=== PATIENT | female | born 1990 | race Caucasian/White ===

== ENCOUNTER 2021-05-17 10:10 | Inpatient (IN) | payer OTHER, MEDICAID, SELFPAY ==
[2021-05-17] VITALS (17 sets, daily range): BP systolic 101–126; BP diastolic 57–102; PULSE 74–101; RESP 16–18; TEMP 35.7–36.6; O2SAT 95–98; BMI 38.7
[2021-05-17] MEDS: Lactated Ringers 1,000 ML 999 ML IV (10:30)
[2021-05-17] MEDS: Acetaminophen 500 MG Tablet 1000 MG PO ×3 (10:50→23:35)
[2021-05-17 10:53] LABS: Absolute Lymphocyte Count 1.37 X10^3/uL (0.83-4.51); Absolute Neutrophil Count 5.1 X10^3/uL (2.0-7.7); Basophil# 0.02 X10^3/uL; Basophil% 0.3 % (0-1); Eosinophil# 0.08 X10^3/uL; Eosinophils% 1.1 % (0-5); Hematocrit 34.6 % (37-47); Lymphocyte # 1.37 X10^3/ul (0.83-4.51); Lymphocyte % 19.6 % (19-41); Mean Corp Hgb Conc 31.8 g/dL (32-36); Mean Corpuscular Hgb 23.7 pg (27.0-32.0); Mean Corpuscular Volume 74.6 fL (81-99); Mean Platelet Vol. 9.9 fl (6.2-12.0); Monocyte# 0.45 X10^3/uL; Monocyte% 6.4 % (0-10); NRBC Flagged by Analyzer 0 % (0-5); Neutrophil # 5.05 X10^3/uL (2.7-7.7); Neutrophil % 72.2 % (47-70); Platelet Count 253 K/mm3 (150-450); RBC Distribution Width CV 15.4 % (11.6-14.6); Red Blood Count 4.64 M/mm3 (4.2-5.4)
[2021-05-17] MEDS: Lactated Ringers 1,000 ML 150 ML IV (11:31)
[2021-05-17] MEDS: Sodium Citrate/Citric Acid 30 ML UDC PO (11:54)
[2021-05-17] MEDS: Cefazolin 2 GM in 0.9% Normal Saline 100 ML IV (12:07)
--- NOTE | 2021-05-17 13:22 | PCM.HP.OB ---
HPI - General General Date of Admission: 05/17/21 HPI Narrative SADIA WARNER, is a 30 F who presents for scheduled section. No complaints today. Maternal Data Information RISA Calculator Estimated Delivery Date Method Current WG Current Estimate 05/23/21 Ultrasound #1 39w 1d Other Estimates 05/13/21 LMP (Certain) 40w 4d PFSH PFSH Medical History (Updated 05/17/21 @ 13:[address] Corinne Gloria, DO) Gestational diabetes hemorrhage Stillborn, normal Home Medications [id number] [] 1 tab PO 05/17/21 [History Last Taken 05/16/21 21:00] Allergy/AdvReac Type Severity Reaction Status Date / Time cashew nut Allergy Hives Verified 05/17/21 10:33 Surgical History (Updated 05/17/21 @ 11:36 by Alecia Barriga) History of surgery Social History Smoking Status: Never smoker History Elective abortions Hx Para 2 Spontaneous abortions Hx # Term Pregnancies Ectopic pregnancies Hx # Pregnancies Multiple births # of living children NST FHR Rate Baby A NST Reactive:: Yes FHR Category:: Category I ROS ROS Narrative No pain, vb, lof. +FM. Vital Signs Vital Signs Vital Signs: 05/17/21 10:44 05/17/21 11:38 Temperature 97.9 F Temperature Source Temporal Pulse Rate 98 101 H Respiratory Rate 18 Blood Pressure 113/77 113/77 Blood Pressure Mean 89 BP Systolic 113 BP Diastolic 77 Blood Pressure Source Monitor Blood Pressure Position Semi-Fowlers Blood Pressure Location Right Arm Pulse Ox 95 Oxygen Delivery Method Room Air Weight Weight: 226 lb Body Mass Index (BMI) 38.7 Physical Exam Const alert and no apparent distress General Appearance: cooperative HEENT normocephalic Resp normal respiratory effort Cardio regular rate GI soft to palpation and non-tender Extremity no clubbing, cyanosis or edema Labs Labs Labs: Blood Type B NEGATIVE Antibody Screen NEGATIVE Hct 34.6 % (37-47) L Hgb 11.0 g/dL (12.0-15.0) L Assessment & Plan (1) 39 weeks gestation of : PLAN: Patient presents for scheduled section. She has a history of a shoulder dystocia with a shoulder dislocation and the baby weighed 8 pounds 10 ounces at that time. Based on palpation in the office as well as a third trimester growth ultrasound, the weight of this fetus was expected to be around the same as her first which was complicated by shoulder dystocia. Discussed risks, benefits, alternatives to a scheduled primary section and a vaginal delivery. Discussed option for an elective induction of labor at 39 weeks versus awaiting spontaneous labor. I had an in-depth discussion with the patient and her partner and gave them several attempts to discuss amongst themselves their desired mode of delivery. The patient understood risk of recurrence with a shoulder dystocia. She understood limitations of a third trimester growth ultrasound. She understood risks with a section and recovery. She also understood risks and complications with a shoulder dystocia. The patient desired to proceed with a primary section. Preop antibiotics given. Consent signed. Routine preoperative care. (2) History of shoulder dystocia: (3) History of IUFD: (4) Late care: (5) Rh negative status during :
[2021-05-17] MEDS: Oxytocin 30 units/NS 500 ml 30 UNITS/500 ML IV.SOLN 167 UNITS IV (13:25)
--- NOTE | 2021-05-17 13:28 | PCM.OPRPT ---
Problems Associated Problem List Diagnoses (1) 39 weeks gestation of : (2) History of shoulder dystocia: (3) History of IUFD: (4) Late care: (5) Rh negative status during : Report of Operation Date of Procedure: 05/17/21 Pre-Operative Diagnosis: 39 week gestation, single IUP, history of shoulder dystocia, suspected macrosomia, elective section Post-Operative Diagnosis: As above Surgery/Procedure Performed:: Primary low transverse section via Pfannenstiel incision Description of Surgical Findings:: Clear fluid. Normal-appearing placenta. Viable male infant who weighed 8 pounds 15 ounces. Normal-appearing uterus, bilateral tubes, bilateral ovaries. Surgeon: [employer] fast food delivery driver: Daisy Type of Anesthesia: Spinal Special Medications: None Specimen's removed: Placenta Drains: Mayo Estimated Blood Loss (mL): 1000 Fluids Replaced: See anesthesia record Description of Procedure: The patient was taken to the operating room where spinal anesthesia was adequate. She was prepped and draped in the dorsal position with a leftward tilt. A Pfannenstiel skin incision was made with a scalpel and this was carried down to the underlying layer of fascia. The fascia was incised in the midline. The fascia was extended laterally using Blair scissors. The fascia was dissected off of the rectus muscles with combination of sharp and blunt dissection with good visualization of the bladder. The incision was stretched bluntly. A low transverse incision was made on the uterus with a scalpel. Membranes were ruptured for clear fluid. The head of the infant was flexed and brought to the hysterotomy. The infant was delivered without any force or delay. A viable male infant was delivered atraumatically and easily through the hysterotomy. The cord was clamped and cut immediately and the vigorous infant was handed off to the nursery staff. The placenta was removed with manual extraction. The uterus was exteriorized. The uterus was cleared of all clot and debris. The uterine incision was closed with Vicryl in a running locked fashion. A second implicating layer was performed using Vicryl. The incision was noted to be hemostatic. The adnexa were noted to be normal-appearing. Uterus is placed back into the abdomen. Arrista was placed over the hysterotomy. The peritoneum was closed with Vicryl in a running fashion. The fascia was closed with stratafix in a running fashion. The subcutaneous space was irrigated and made hemostatic with the Bovie cautery. Subcutaneous space was reapproximated with Vicryl. Skin was closed in a subcuticular fashion using Monocryl. Steri-Strips and dressing were placed. Instrument, needle, sponge counts were correct and the patient was taken to the recovery room in stable condition. Grafts/Implants Used: None Complications None Admit VTE Documentation VTE Present on Admission: No VTE Mechan Device Prophylaxis: SCD's
[2021-05-17] MEDS: Ketorolac 30 MG/ML Syringe IV ×2 (14:15→20:02)
[2021-05-17] MEDS: Lactated Ringers 1,000 ML 100 ML IV (16:31)
[2021-05-18] MEDS: Enoxaparin 40 MG/0.4 ML Syringe SC (01:22)
[2021-05-18] MEDS: 0.9% Saline Lock 10 ML Syringe IV (02:26)
[2021-05-18] MEDS: Ketorolac 30 MG/ML Syringe IV ×2 (02:26→08:49)
[2021-05-18 04:00] VITALS: BP 104/57; PULSE 91; RESP 16; TEMP 36.5; O2SAT 95
[2021-05-18] MEDS: Acetaminophen 500 MG Tablet 1000 MG PO ×2 (05:24→11:26)
[2021-05-18 06:42] LABS: Hematocrit 31.5 % (37-47); Hemoglobin 9.6 g/dL (12.0-15.0); Mean Corp Hgb Conc 30.5 g/dL (32-36); Mean Corpuscular Hgb 23.1 pg (27.0-32.0); Mean Corpuscular Volume 75.9 fL (81-99); Mean Platelet Vol. 9.1 fl (6.2-12.0); Platelet Count 231 K/mm3 (150-450); RBC Distribution Width CV 15.6 % (11.6-14.6); RBC Distribution Width SD 42.1 fl (35.1-43.9); Red Blood Count 4.15 M/mm3 (4.2-5.4); White Blood Count 10.3 K/mm3 (4.4-11.0)
--- NOTE | 2021-05-18 08:54 | NURSING ---
this nurse agrees with assessment and vital signs of patient per Lhkpa, student nurse.
[2021-05-18 09:03] VITALS: BP 105/64; PULSE 90; RESP 16; TEMP 35.9; O2SAT 96
--- NOTE | 2021-05-18 10:01 | PCM.PN.OB ---
Subjective Subjective Patient is doing well this morning. Ambulating voiding without difficulty. Tolerating regular diet without nausea or vomiting. She denies chest pain, lightheadedness, dizziness, shortness of breath, leg pain. Lochia normal. She is breast-feeding without any complaints. She desires discharge to home today. Objective Data Objective Data Vital Signs: Vital Signs Temp Pulse Resp BP Pulse Ox 96.6 F L 90 16 105/64 96 05/18/21 09:03 05/18/21 09:03 05/18/21 09:03 05/18/21 09:03 05/18/21 09:03 Oxygen Delivery Method Room Air Weight: 226 lb Body Mass Index (BMI) 38.7 Intake & Output: Intake and Output for Last 24 Hours 05/16/21 05/17/21 05/18/21 23:59 23:59 23:59 Intake Total 1930 / 2678.33 748.33 / 748.33 Output Total 1585 / 1585 1500 / 1500 Balance 345 / 1093.33 -751.67 / -751.67 Lab / Micro Data Result Diagrams: 05/18/21 06:25 Labs: Laboratory Results - last 24 hr 05/17/21 10:37: WBC 7.0, RBC 4.64, Hgb 11.0 L, Hct 34.6 L, MCV 74.6 L, MCH 23.7 L, MCHC 31.8 L, RDW Std Deviation 41.0, RDW Coeff of Maeve 15.4 H, Plt Count 253, MPV 9.9, Immature Gran % (Auto) 0.400, Neut % (Auto) 72.2 H, Lymph % (Auto) 19.6, Granite % (Auto) 6.4, Eos % (Auto) 1.1, Baso % (Auto) 0.3, Absolute Neuts (auto) 5.1, Absolute Lymphs (auto) 1.37, Nucleated RBC % 0 05/17/21 10:37: Blood Type B NEGATIVE, Antibody Screen NEGATIVE 05/17/21 14:25: Screen NEGATIVE, Baby's Blood Type B POSITIVE, Baby's CHECO NEGATIVE 05/18/21 06:25: WBC 10.3, RBC 4.15 L, Hgb 9.6 L, Hct 31.5 L, MCV 75.9 L, MCH 23.1 L, MCHC 30.5 L, RDW Std Deviation 42.1, RDW Coeff of Maeve 15.6 H, Plt Count 231, MPV 9.1 Micro: Microbiology 05/17/21 10:25 Nasal Secretion SARS-CoV-2 Antigen (Rapid) - Final Physical Exam Const alert and no apparent distress General Appearance: comfortable HEENT normocephalic Resp normal respiratory effort Extremity Extremity Narrative: Trace edema bilaterally General Extremity: Negative for calf tenderness Assessment & Plan (1) Rh negative status during : (2) Late care: (3) History of IUFD: (4) History of shoulder dystocia: (5) 39 weeks gestation of : (6) S/P section: PLAN: She is doing well postop. Vital signs are stable. Postop anemia noted and discussed iron supplementation going home with patient. She is meeting all milestones for discharge and discharge instructions were reviewed. DC home today with follow-up next week for incision check.
--- NOTE | 2021-05-18 10:09 | PCM.DC ---
Discharge Instructions Diet Discharge Diet: No restrictions Activity Discharge Activity: May Not Drive (until strong enough to slam a brake or turn a steering wheel sharply) May resume sexual activity in: 6-8 weeks Weight Bearing Status: Weight bearing as tolerated Lifting Restrictions: Nothing heavier than baby Dressing / Incision Call your doctor if your incision/area has: Sudden Increased Bleeding, Increased Pain/ Swelling, Increased Redness, Foul Smelling Discharge and Swelling at the incision site Call your doctor if you observe: Fever of 101 or Higher, Coldness, Increased Pain, Numbness or Tingling, Change in Color, Inability to urinate, Inability to have a bowel movement, Using more than 1 pad per hour, Shortness of breath, Dizziness, Fainting spells, Swelling in the ankles, Chest pain, Increased palpitations (irregular heartbeat), Calf discomfort and Uncontrolled pain Suture Line Care: Avoid Pulling/Pushing and Avoid Pinching/Bending Remove Dressing in: leave in place till F/U Cleanse incision/area with: Soap & Water Follow Up Care Please Follow Up With: [facility] When: 1 week and 6 weeks Test Results: Test results from this visit will be discussed in further detail at your follow-up appointment, if applicable. Discharge Plan Admission Admit Date/Time: 05/17/21 10:10 Primary Reason for Your Visit: section Attending Provider: Corinne Gloria Instructions Patient Instructions: After a , C Section Dc Discharge Orders/Prescriptions Prescriptions: New oxycodone-acetaminophen [Percocet] 5-325 mg tablet 1 tab PO Q6H PRN (Reason: pain) 7 Days Qty: 10 RF: 0 docusate sodium [Colace] 100 mg capsule 100 mg PO BID Qty: 30 RF: 0 ibuprofen 600 mg tablet 600 mg PO Q6H PRN (Reason: pain) Qty: 30 RF: 0 ferrous sulfate 325 mg (65 mg iron) tablet 325 mg PO DAILY Qty: 30 RF: 0 Continued [id number] 1 mg Tablet 1 tab PO RF: 0 Disposition Disposition (needs filled in before D/C Order can be placed): Home, Self Care
--- NOTE | 2021-05-18 13:55 | NURSING ---
This chief nursing officer reviewed the documentation completed by the student, Rkeha Lyon.
[2021-05-18 14:17] VITALS: BP 103/72; PULSE 89; RESP 16; TEMP 36.5; O2SAT 98
[2021-05-18] MEDS: Ibuprofen 600 MG Tablet PO (14:40)
== END 2021-05-18 15:05 | disposition home or self-care (01) | DRG 788 ==
PROVIDERS: Admitting Provider Obstetrics & Gynecology; Visit Provider Obstetrics & Gynecology
PROC: 10D00Z1 Extraction of Products of Conception, Low, Open Approach (ICD-10-PCS; CPT 59514; principal; 2021-05-17 11:45)
DX: O99.892 Other specified diseases and conditions complicating childbirth (principal); Z37.0 Single live birth; Z67.91 Unspecified blood type, Rh negative; Z87.59 Personal history of other complications of pregnancy, childbirth and the puerperium; Z3A.39 39 weeks gestation of pregnancy
CPT/HCPCS: 59050; 85025; 85027; 85461; 86850; 86900; 86901; 87426; 90384; 99218; J7120; A4216; G0378; J2790

== ENCOUNTER 2022-01-16 14:56 | Emergency (ER) | payer OTHER, MEDICAID, SELFPAY ==
[2022-01-16 14:57] VITALS: BP 129/93; PULSE 95; RESP 16; TEMP 36.3; O2SAT 97; BMI 34.7
--- NOTE | 2022-01-16 15:38 | US_ITS ---
STUDY: ULTRASOUND TRANSVAGINAL CLINICAL: Female, 31 years old. heavy vaginal bleeding TECHNIQUE: Transvaginal COMPARISON: None. FINDINGS: Normal uterine size measuring 9.8 x 4.5 x 5.5 cm in maximal craniocaudal dimension. There are no myometrial masses. Normal endometrial thickness measuring 12 mm. There are no endometrial masses, and there is no fluid in the endometrial cavity. Normal uterine cervix. Normal right ovary, measuring 4.1 x 2.2 x 2.3 cm. There are multiple follicles without a dominant cyst. Normal left ovary, measuring 2.5 x 2.3 x 2 point cm. There are multiple follicles without a dominant cyst. There is no free fluid in the pelvis. Polycystic ovary disease: No. US/Transvaginal Non- IMPRESSION: Normal transvaginal pelvic ultrasound. Electronically Signed: Bradley Coffman MD at 17:11 EDT ,
--- NOTE | 2022-01-16 15:39 | ED.VIS.FEGU ---
HPI HPI - Female History of Present Illness Chief Complaint: Vag Bleeding Informant: patient Bleeding Issue: Positive for Vaginal bleeding and Passing clots Onset: Yesterday Timing: Continuous Current Severity: Heavy Narrative Narrative: Patient presents secondary to heavy vaginal bleeding. Her last normal menstrual cycle was 2 weeks ago. She states other than being slightly vamper than normal it was time for her normal period. Yesterday she started bleeding again. She normally wears a vaginal cup and states she noted that she had to dump it more frequently than normal. Overnight she bled through everything. She went to the emergency room in [place] earlier this morning. test was negative and hemoglobin was normal. 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 She had appointment at 1 PM this afternoon. During her 30-minute drive from her home to the office she blood through her clothing. She was not seen in the office but was instead advised to present to the emergency room. She states she was having abdominal cramping yesterday but not having any pain at this time. [facility] Medical History Gestational diabetes History of IUFD History of shoulder dystocia hemorrhage Rh negative status during Stillborn, normal Home Medications [id number] 1 mg tablet 1 tab PO 05/17/21 [History Last Taken 05/16/21 21:00] docusate sodium 100 mg capsule (Colace) 100 mg PO BID #30 caps 05/18/21 [Rx Last Taken Unknown] ferrous sulfate 325 mg (65 mg iron) tablet 325 mg PO DAILY #30 tabs 05/18/21 [Rx Last Taken Unknown] ibuprofen 600 mg tablet 600 mg PO Q6H PRN pain #30 tabs 05/18/21 [Rx Last Taken Unknown] oxycodone-acetaminophen 5 mg-325 mg tablet (Percocet) 1 tab PO Q6H PRN pain 7 days #10 tabs 05/18/21 [Rx Last Taken Unknown] norethindrone acetate 5 mg tablet (Aygestin) 5 mg PO TID #30 tabs 01/16/22 [Rx Last Taken Unknown] Allergy/AdvReac Type Severity Reaction Status Date / Time cashew nut Allergy Hives Verified 05/29/21 08:20 Surgical History History of surgery S/P section Social History Smoking Status: Never smoker ROS ROS ED Constitutional Constitutional ED: Denies chills or fever(s) Eyes Eyes: Denies change in vision or discharge from eye(s) ENT ENT ED: Denies discharge from eye(s), rhinorrhea or sore throat Cardiovascular Cardiovascular: Denies chest pain or palpitations Respiratory/Chest Respiratory/Chest: Denies cough or dyspnea Gastrointestinal Gastrointestinal: Denies abdominal pain, diarrhea, nausea or vomiting Genitourinary Genitourinary ED: Reports other Details: Heavy vaginal bleeding ; Denies difficulty urinating or dysuria Musculoskeletal Musculoskeletal: Denies back pain or extremity pain Integumentary Denies Abrasions or rash Neurologic Neurologic: Denies headache(s) or weakness Allergic/Immunologic Allergic/Immunologic ED: Denies lip swelling or urticaria EXAM Physical Exam Const Vital Signs: 01/16/22 14:57 Temperature 97.4 F L Temperature Source Temporal Pulse Rate 95 Respiratory Rate 16 Blood Pressure 129/93 H Blood Pressure Mean 105 Pulse Ox 97 Oxygen Delivery Method Room Air Positive well nourished and well developed General Appearance ED: well developed HEENT Reports moist mucous membranes Eyes PERRL and EOMs intact bilaterally Chest Wall inspection of chest normal and palpation of chest normal Resp normal respiratory effort and clear to auscultation bilaterally Cardio regular rate and regular rhythm GI soft to palpation and non-tender Extremity normal to inspection Neuro oriented x3 and no sensory deficits noted Motor Exam: strength 5/5 throughout Psych mental status grossly normal Skin no rashes or lesions noted MDM MDM MDM Narrative Medical decision making narrative: Patient given IV fluids. CBC obtained. I did review records from [place] and patient's quant was less than 2 this morning. Pelvic ultrasound is ordered. Lab Data Attestation: I reviewed the patient's lab results. Labs: Laboratory Results - last 24 hr 01/16/22 15:50 WBC 7.8 RBC 4.97 Hgb 14.0 Hct 41.4 MCV 83.3 MCH 28.2 MCHC 33.8 RDW Std Deviation 40.1 RDW Coeff of Maeve 13.2 Plt Count 363 MPV 8.8 Immature Gran % (Auto) 0.300 Neut % (Auto) 67.8 Lymph % (Auto) 23.9 [place] % (Auto) 5.3 Eos % (Auto) 2.3 Baso % (Auto) 0.4 Absolute Neuts (auto) 5.3 Absolute Lymphs (auto) 1.86 Nucleated RBC % 0 Radiography Diagnostic Testing: Clinical Impression(s) from Imaging Studies Transvaginal US 01/16/22 15:38 IMPRESSION: Normal transvaginal pelvic ultrasound. Electronically Signed: Bradley Coffman MD at 17:11 EDT , Treatment and Re-Evaluation Narrative: Patient's hemoglobin this morning was 14.4, currently is 14.0. Pelvic ultrasound reveals no acute abnormalities. Endometrial stripe is 12 mm. I spoke with Celina Correa, nurse pressure sealer and tester on-call for [employer]. She states that we can give the patient prescription for Aygestin if she wishes. I spoke with the patient. She feels that the bleeding is lightening up currently. We will write her a prescription to take with her. If her bleeding increases again she will fill this tomorrow. Return instructions are provided. Discharge Plan Triage Chief Complaint: Vag Bleeding ED Provider: Valarie Rivas Dx/Rx/DC Orders Clinical Impression: Menorrhagia Instructions: ED Heavy Menstrual Bleeding Prescriptions: New norethindrone acetate [Aygestin] 5 mg tablet 5 mg PO TID Qty: 30 0RF Rx Instructions: One tab three times daily until your bleeding subsides. Then take one tab twice daily for three days, followed by one tab daily for three days. No Action [id number] 1 mg Tablet 1 tab PO oxycodone-acetaminophen [Percocet] 5-325 mg tablet 1 tab PO Q6H PRN (Reason: pain) 7 Days Qty: 10 0RF docusate sodium [Colace] 100 mg capsule 100 mg PO BID Qty: 30 0RF ibuprofen 600 mg tablet 600 mg PO Q6H PRN (Reason: pain) Qty: 30 0RF ferrous sulfate 325 mg (65 mg iron) tablet 325 mg PO DAILY Qty: 30 0RF Primary Care Provider: Care Physician,No Primary Referrals: Pham Borden MD [Med Staff - Active Staff] - 3-5 Days if not improving NOT,DEFINED [Non-Staff] - Disposition Disposition: Home, Self Care
[2022-01-16] MEDS: 0.9% Normal Saline 1,000 ML 1000 ML IV (15:56)
[2022-01-16 16:00] LABS: Absolute Lymphocyte Count 1.86 X10^3/uL (0.83-4.51); Absolute Neutrophil Count 5.3 X10^3/uL (2.0-7.7); Basophil# 0.03 X10^3/uL; Basophil% 0.4 % (0-1); Eosinophil# 0.18 X10^3/uL; Eosinophils% 2.3 % (0-5); Hematocrit 41.4 % (37-47); Lymphocyte # 1.86 X10^3/ul (0.83-4.51); Lymphocyte % 23.9 % (19-41); Mean Corp Hgb Conc 33.8 g/dL (32-36); Mean Corpuscular Hgb 28.2 pg (27.0-32.0); Mean Corpuscular Volume 83.3 fL (81-99); Mean Platelet Vol. 8.8 fl (6.2-12.0); Monocyte# 0.41 X10^3/uL; Monocyte% 5.3 % (0-10); NRBC Flagged by Analyzer 0 % (0-5); Neutrophil # 5.29 X10^3/uL (2.7-7.7); Neutrophil % 67.8 % (47-70); Platelet Count 363 K/mm3 (150-450); RBC Distribution Width CV 13.2 % (11.6-14.6); RBC Distribution Width SD 40.1 fl (35.1-43.9); Red Blood Count 4.97 M/mm3 (4.2-5.4); White Blood Count 7.8 K/mm3 (4.4-11.0)
== END 2022-01-16 17:43 | disposition home or self-care (01) ==
PROVIDERS: Emergency Provider Emergency Medicine; Visit Provider Emergency Medicine
DX: N92.0 Excessive and frequent menstruation with regular cycle (principal)
CPT/HCPCS: 76830; 85025; 96360; 96361; 99283; J7030; A4216

== ENCOUNTER → 2023-10-21 | Outpatient (CLI) | payer OTHER, BC, SELFPAY ==
--- NOTE | 2023-10-21 15:03 | VDLE_ITS ---
Reason For Study: Bilateral leg pain RIGHT LEFT GSV is normal. GSV is normal. CFV is compressible, spontaneous, phasic, CFV is compressible, spontaneous, phasic, competent and demonstrates normal competent, and demonstrates normal augmentation. augmentation. FV is compressible, spontaneous, phasic, FV is compressible, spontaneous, phasic, competent and demonstrates normal competent and demonstrates normal augmentation. augmentation. POP V is compressible, spontaneous, phasic, POP V is compressible, spontaneous, phasic, competent and demonstrates normal competent and demonstrates normal augmentation. augmentation. T/P Trunk is compressible. T/P Trunk is compressible. PTV is compressible. PTV is compressible. RT PerV is compressible. LT PerV is compressible. Procedure This is a venous duplex using B-mode, color flow and spectral Doppler. Exam performed in department. A preliminary report was called and/or faxed to Dr. Gloria. VL/Venous Duplex US - Abhishek Extrem Interpretation Summary No evidence for acute deep venous thrombosis bilateral lower extremities with p atent and compressible bilateral great saphenous veins. Ordering Physician: Corinne Gloria Performed By: Madison Belcher RVT and Student
== END | disposition home or self-care (01) ==
PROVIDERS: Referring Provider Obstetrics & Gynecology; Visit Provider Obstetrics & Gynecology
DX: O99.891 Other specified diseases and conditions complicating pregnancy (principal); M79.661 Pain in right lower leg; R09.89 Other specified symptoms and signs involving the circulatory and respiratory systems; Z3A.38 38 weeks gestation of pregnancy; O09.93 Supervision of high risk pregnancy, unspecified, third trimester
CPT/HCPCS: 93970

== ENCOUNTER 2023-10-25 05:40 | Inpatient (IN) | payer OTHER, BC, SELFPAY ==
[2023-10-25] VITALS (16 sets, daily range): BP systolic 101–120; BP diastolic 63–84; PULSE 66–92; RESP 16; TEMP 35.9–37.1; O2SAT 96–100; BMI 36.1
[2023-10-25] MEDS: Lactated Ringers 1,000 ML 999 ML IV (05:55)
[2023-10-25 06:16] LABS: Absolute Lymphocyte Count 1.83 X10^3/uL (0.83-4.51); Absolute Neutrophil Count 3.7 X10^3/uL (2.0-7.7); Basophil# 0.01 X10^3/uL; Basophil% 0.2 % (0-1); Eosinophil# 0.16 X10^3/uL; Eosinophils% 2.6 % (0-5); Hematocrit 35.9 % (37-47); Hemoglobin 11.8 g/dL (12.0-15.0); Lymphocyte # 1.83 X10^3/ul (0.83-4.51); Lymphocyte % 30.1 % (19-41); Mean Corp Hgb Conc 32.9 g/dL (32-36); Mean Corpuscular Hgb 25.2 pg (27.0-32.0); Mean Corpuscular Volume 76.7 fL (81-99); Mean Platelet Vol. 9.5 fl (6.2-12.0); Monocyte# 0.32 X10^3/uL; Monocyte% 5.3 % (0-10); NRBC Flagged by Analyzer 0 % (0-5); Neutrophil # 3.73 X10^3/uL (2.7-7.7); Neutrophil % 61.5 % (47-70); Platelet Count 294 K/mm3 (150-450); RBC Distribution Width CV 14.6 % (11.6-14.6); RBC Distribution Width SD 39.9 fl (35.1-43.9); Red Blood Count 4.68 M/mm3 (4.2-5.4); White Blood Count 6.1 K/mm3 (4.4-11.0)
[2023-10-25] MEDS: Sodium Citrate/Citric Acid 30 ML UDC PO (06:16)
[2023-10-25] MEDS: Acetaminophen 500 MG Tablet 1000 MG PO ×3 (06:16→18:25)
[2023-10-25] MEDS: Lactated Ringers 1,000 ML 150 ML IV (06:57)
--- NOTE | 2023-10-25 07:10 | PCM.HP.BLA ---
History and Physical Date of Admission: 10/25/23 DATE OF SERVICE: October 14, 2023 PROBLEM: accelerated growth, history shoulder dystocia DIAGNOSIS: as above PAST SURGICAL HISTORY: PAST SURGICAL HISTORY PAST SURGICAL HISTORY Procedure Laterality Date ? DELIVERY ONLY 05/17/2020 LTCS ? D&C, DIAG AND/OR THERAPEUTIC D&E ? TONSILLECTOMY HX PAST MEDICAL HISTORY: PAST MEDICAL HISTORY PAST MEDICAL HISTORY Diagnosis Date ? Diabetes, gestational ? Gestational diabetes ? 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 History of cold urticaria Pt states she has not had problems with this in a few years ? History of gestational diabetes in prior , currently 11/24/2020 ? Late care affecting , antepartum 11/24/2020 11/24/2020atient is 14w2d by dates. Did not have any care prior to her ultrasound appointment on November 21. She states she was seen earlier in because she has a history of recurrent loss and wanted to wait till she was past the 12-week leonidas. TKRN ? Positive GBS test 05/04/2021 SUBJECTIVE: pt doing well and offers no complaints SOCIAL HISTORY: SOCIAL HISTORYExpand by Default Social History Tobacco Use ? Smoking status: Never ? Smokeless tobacco: Never Vaping Use ? Vaping Use: Never used Substance Use Topics ? Alcohol use: Not Currently ? Drug use: Never ALLERGIES ALLERGIES Allergen Reactions ? Cashew Nut Hives Current Outpatient Medications on File Prior to Visit Medication Sig ? BABY ASPIRIN ORAL Take 81 mg by mouth once daily. ? Nwsjzoua-Sx-Mle-Fe-FA ( VITAMIN) tab Take 1 tablet by mouth. No current facility-administered medications on file prior to visit. OBJECTIVE: VITALS: BP 120/74 Wt 94.7 kg (208 lb 12.8 oz) LMP 01/07/2023 BMI 35.84 kg/m? HEENT: Normocephalic, atraumatic, Mucus membranes moist without lesions. SKIN: No lesions. CHEST: No increased respiratory effort. HEART: Regular rate. BACK: Nontender. ABDOMEN: Soft, non-tender, non-distended, no masses, no hepatosplenomegaly, gravid. LOWER EXTREMITIES: There were no skin changes. ASSESSMENT: pre op visit for repeat section per patient request given accelerated growth and history of shoulder dystocia PLAN: 1) Discussed r/b/a repeat section. The patient understands limitations with growth ultrasounds. She desires to proceed with a repeat section. The rationale for the proposed surgery was discussed in addition to risks, benefits, and alternatives. General pre- and post-operative care was reviewed. Questions were answered. After discussion, the patient indicated a desire to proceed with the planned surgery. Corinne Gloria, DO Assessment & Plan Assessment/Plan (1) 39 weeks gestation of : (2) History of section: (3) Accelerated growth of fetus:
[2023-10-25] MEDS: Cefazolin 2 GM in 0.9% Normal Saline (100mL Bag) 100 ML IV (07:15)
[2023-10-25 08:03] LABS: Syphilis Antibodies Non-reactive
--- NOTE | 2023-10-25 08:28 | PCM.OPRPT ---
Problems Associated Problem List Diagnoses (1) Accelerated growth of fetus: (2) History of section: (3) 39 weeks gestation of : Report of Operation Date of Procedure: 10/25/23 Pre-Operative Diagnosis: 39 week gestation, history section, accelerated growth Post-Operative Diagnosis: As above Surgery/Procedure Performed:: RLTCS via pfannenstiel incision Description of Surgical Findings:: VMI in cephalic presentation with Apgars 8, 9. Large amount of clear fluid. Loose nuchal cord x 1. Minimal adhesive disease of bladder to anterior uterus. Normal appearing uterus and bilateral adnexa. Normal appearing placenta. Surgeon: Corinne Gloria manager pacu: Zeinab CATHERINE Type of Anesthesia: Spinal Special Medications: None Specimen's removed: Placenta Drains: Mayo Estimated Blood Loss (mL): 900 Fluids Replaced: 1000 mL Description of Procedure: The patient was taken to the operating room where spinal anesthesia was found to be adequate. She was prepped and draped in the dorsal supine position with a leftward tilt. A Pfannenstiel skin incision was made with a scalpel and carried down to the underlying layer of fascia. The fascia was incised in the midline. The fascial incision was extended laterally using Blair scissors. The fascia was dissected off the rectus muscles in a cephalad direction with adhesive disease of the fascia to the rectus muscles noted. The peritoneum was adhered to the rectus muscles in the midline. The rectus muscles were midline bluntly. The peritoneum was entered with a combination of sharp and blunt dissection with good visualization of the bladder. The peritoneal incision was extended with lateral traction. A bladder blade was inserted. Minimal adhesive disease of the bladder was noted to the uterus. A bladder flap was created using Metzenbaum scissors. A low transverse incision was made on the uterus with a scalpel. The uterine incision was extended with cephalad and caudad traction. Membranes were ruptured for clear fluid with an Allis clamp. A vigorous viable male was delivered in cephalic presentation without any traction, force, or delay. A loose nuchal cord x 1 was reduced during delivery. Head was kept in flexed position during delivery. The cord was clamped and cut after a slight delay and the infant was handed off to the waiting nursery staff. The placenta was removed with manual extraction. The uterus was exteriorized. The uterus was cleared of all clot and debris. The uterine incision was closed with 1-0 Vicryl in a running locked fashion. Several additional [id number] sutures were placed at the left side of the uterine incision for hemostasis. Hemostasis was noted. The uterus was placed back into the abdomen. Hemostasis was again noted. The peritoneum was unable to be reapproximated. The preperitoneal fat was made hemostatic using Bovie cautery and Annabelle. Annabelle was placed over the lower uterine segment. The subfascial space was noted to be hemostatic. The fascia was closed with STRATAFIX in running fashion. The subcutaneous space was irrigated and made hemostatic with the Bovie cautery. The subcutaneous space was reapproximated using 3-0 Vicryl. The skin was closed with 4 Monocryl in a subcuticular fashion. A dressing was placed. Instrument, sponge, sharp counts were correct and the patient was taken to the recovery room in stable condition. Customer Relations Consultant Pati CATHERINE was present for the entire procedure and assisted with draping the patient, delivery of the , and closure. Grafts/Implants Used: None Procedure Start Time: 07:41 Procedure Stop Time: 08:27 Complications None Admit VTE Documentation VTE Present on Admission: No VTE Mechan Device Prophylaxis: SCD's
[2023-10-25] MEDS: Oxytocin 15 Units/NS 250ml 15 UNITS/250 ML IV.SOLN 83 UNITS IV (08:45)
[2023-10-25] MEDS: Ketorolac 30 MG/ML Syringe IV ×3 (10:06→21:19)
[2023-10-25] MEDS: Lactated Ringers 1,000 ML 100 ML IV (12:05)
[2023-10-25] MEDS: Rho(D) Immune Globulin 300 MCG (1500 Unit) Syringe IV (18:22)
[2023-10-25] MEDS: Enoxaparin 40 MG/0.4 ML Syringe SC (21:17)
[2023-10-25] MEDS: 0.9% Saline Lock 10 ML Syringe IV (21:17)
[2023-10-25] MEDS: Senna/Docusate Sodium 1 Tablet PO (21:18)
[2023-10-26] MEDS: Acetaminophen 500 MG Tablet 1000 MG PO ×2 (00:02→07:45)
[2023-10-26 00:03] VITALS: BP 116/72; PULSE 99; RESP 16; TEMP 36.3
[2023-10-26] MEDS: 0.9% Saline Lock 10 ML Syringe IV (03:17)
[2023-10-26] MEDS: Ketorolac 30 MG/ML Syringe IV (03:17)
[2023-10-26 04:45] VITALS: BP 100/64; PULSE 76; RESP 18; TEMP 36.1; O2SAT 100
[2023-10-26 04:50] LABS: Hematocrit 28.5 % (37-47); Hemoglobin 9.1 g/dL (12.0-15.0); Mean Corp Hgb Conc 31.9 g/dL (32-36); Mean Corpuscular Hgb 24.9 pg (27.0-32.0); Mean Corpuscular Volume 77.9 fL (81-99); Mean Platelet Vol. 9.1 fl (6.2-12.0); Platelet Count 269 K/mm3 (150-450); RBC Distribution Width CV 14.6 % (11.6-14.6); Red Blood Count 3.66 M/mm3 (4.2-5.4); White Blood Count 10.5 K/mm3 (4.4-11.0)
[2023-10-26] MEDS: Ibuprofen 600 MG Tablet PO (07:45)
[2023-10-26 08:00] VITALS: BP 105/72; PULSE 77; RESP 16; TEMP 36.1
--- NOTE | 2023-10-26 10:05 | PCM.PN.OB ---
Subjective Subjective Patient is doing well and offers no complaints. She desires discharge today. She is ambulating and voiding without difficulty. She denies lightheadedness, dizziness, chest pain, shortness of breath. She is tolerating regular diet without nausea or vomiting. Lochia is normal. Pain is well-controlled. Objective Data Objective Data Vital Signs: Vital Signs Temp Pulse Resp BP Pulse Ox O2 Del Method 97 F L 77 16 105/72 100 Room Air 10/26/23 08:00 10/26/23 08:00 10/26/23 08:00 10/26/23 08:00 10/26/23 04:45 10/26/23 04:45 Oxygen Delivery Method Room Air Weight: 210 lb 3.2 oz Body Mass Index (BMI) 36.1 Intake & Output: Intake and Output for Last 24 Hours 10/24/23 10/25/23 10/26/23 23:59 23:59 23:59 Intake Total 2226 / 2226 Output Total 3300 / 3300 600 / 600 Balance -1074 / -1074 -600 / -600 Lab / Micro Data 10/26/23 04:45 Labs: Laboratory Results - last 24 hr 10/25/23 05:55: Antibody Identification ANTI-D 10/25/23 16:45: Screen NEGATIVE, Baby's Blood Type B POSITIVE, Baby's CHECO NEGATIVE 10/26/23 04:45: WBC 10.5, RBC 3.66 L, Hgb 9.1 L, Hct 28.5 L, MCV 77.9 L, MCH 24.9 L, MCHC 31.9 L, RDW Std Deviation 41.0, RDW Coeff of Maeve 14.6, Plt Count 269, MPV 9.1 Physical Exam Const alert and no apparent distress General Appearance: comfortable HEENT normocephalic Resp normal respiratory effort GI soft to palpation, non-tender and non-distended GI Narrative: dressing c/d/i Extremity no calf tenderness Extremity Narrative: 1+ edema bilaterally Assessment & Plan (1) delivery delivered: PLAN: POD2 s/p C/S. Doing well and desires discharge home. Discharge instructions reviewed. (2) Acute blood loss anemia: PLAN: No symptoms of anemia. Appropriate for surgery. Discussed iron supplement.
--- NOTE | 2023-10-26 10:09 | DCINST_ITS ---
Discharge Instructions Diet Discharge Diet: No restrictions Activity Discharge Activity: May Not Drive and May Shower May resume sexual activity in: 6 weeks Ice area for (Minutes): 15 Weight Bearing Status: Weight bearing as tolerated Lifting Restrictions: nothing heavier than baby Dressing / Incision Call your doctor if your incision/area has: Continuous Slow Oozing, Sudden Increased Bleeding, Increased Pain/ Swelling, Increased Redness, Foul Smelling Discharge and Swelling at the incision site Call your doctor if you observe: Fever of 101 or Higher, Coldness, Increased Pain, Numbness or Tingling, Change in Color, Inability to urinate, Inability to have a bowel movement, Using more than 1 pad per hour, Shortness of breath, Dizziness, Fainting spells, Swelling in the ankles, Chest pain, Prolonged hiccupping, Increased palpitations (irregular heartbeat), Calf discomfort and Uncontrolled pain Suture Line Care: Avoid Pulling/Pushing and Avoid Pinching/Bending Remove Dressing in: 3 days Cleanse incision/area with: Soap & Water Follow Up Care Please Follow Up With: Corinne Gloria DO When: 1 week for incision check 6 weeks for visit Test Results: Test results from this visit will be discussed in further detail at your follow- up appointment, if applicable. Discharge Plan Admission Admit Date/Time: 10/25/23 05:40 Primary Reason for Your Visit: delivery Attending Provider: Corinne Gloria Primary Care Provider: Care PhysicianAlma Delia Primary Instructions Patient Instructions: After a Discharge Orders/Prescriptions Prescriptions: New ibuprofen 600 mg tablet 600 mg PO Q6H PRN (Reason: pain) Qty: 30 0RF docusate sodium [Colace] 100 mg capsule 100 mg PO BID PRN (Reason: constipation) Qty: 30 0RF ferrous sulfate 325 mg (65 mg iron) tablet 325 mg PO QODAY Qty: 30 0RF Continued [id number] 1 mg Tablet 1 tab PO DAILY Discontinued aspirin [Adult Low Dose Aspirin] 81 mg tablet,delayed release (DR/EC) 81 mg PO DAILY Referrals / Follow Up: Care PhysicianAlma Delia Primary [Primary Care Provider] - Disposition Disposition (needs filled in before D/C Order can be placed): Home, Self Care
== END 2023-10-26 12:30 | disposition home or self-care (01) | DRG 788 ==
PROVIDERS: Admitting Provider Obstetrics & Gynecology; Visit Provider Obstetrics & Gynecology
PROC: 10D00Z1 Extraction of Products of Conception, Low, Open Approach (ICD-10-PCS; CPT 59514; principal; 2023-10-25 07:00)
DX: O36.63X0 Maternal care for excessive fetal growth, third trimester, not applicable or unspecified (principal); O34.211 Maternal care for low transverse scar from previous cesarean delivery; Z37.0 Single live birth; O69.81X0 Labor and delivery complicated by cord around neck, without compression, not applicable or unspecified; Z3A.39 39 weeks gestation of pregnancy; Z79.82 Long term (current) use of aspirin; Z86.32 Personal history of gestational diabetes
CPT/HCPCS: 59050; 85025; 85027; 85461; 86780; 86850; 86870; 86900; 86901; 90384; 99221; J7120; A4216; G0378; J2405; J2790; J2791